=== PATIENT | female | born 1985 | race American Indian/Alaskan Native ===

== ENCOUNTER 2017-09-21 07:53 | Emergency (ER) | payer BC ==
[2017-09-21] MEDS ORDERED: DUONEB *Not for PRN Use IH ONE ×3 (11:14→11:20)
--- NOTE | 2017-09-21 11:15 | Emergency Department Report ---
ED Asthma HPI - General Chief Complaint: Adult Asthma Stated Complaint: ASTHMA Time Seen by Provider: 09/21/17 10:27 Source: patient, family Mode of arrival: Ambulatory Limitations: No Limitations - History of Present Illness Initial Comments: Patient here reports that she is asthma flare up and out of her Symbicort and albuterol. She is also states that she cannot see her primary care physician is Dr. Shmuel Goldstein until next week. She reports wheezing and coughing. Denies any chest pain or discomfort. Denies any fever or chills. Last flareup was in 2014. Last ER visit was in 2014 and she has never been intubated. She coughs and wheezes whether asthma exacerbation. She says it started off with her having runny nose and nasal congestion due to pollen and now she has a full- blown asthma attack per patient. MD Complaint: "asthma attack", shortness of breath, wheezing Onset/Timin -: days(s) Asthma History: history of prior ED visit Context: recent URI, ran out of meds, allergen exposure Associated Symptoms: dry cough. denies: productive cough, fever, chest pain, hemoptysis, leg edema, syncope Treatments Prior to Arrival: inhaled steroid - Related Data Current Asthma Therapy: inhaled bronchodilator, inhaled steroid Previous Rx's Medication Instructions Recorded Last Taken Type Cephalexin [Keflex] 500 mg PO Q6H #28 capsule 05/05/14 Unknown Rx Amoxicillin 1,000 mg PO Q8H #60 tablet 07/18/14 Unknown Rx Ibuprofen [Motrin 800 MG tab] 800 mg PO Q8H PRN #30 tablet 07/18/14 Unknown Rx ALBUTEROL Inhaler [ProAir HFA 2 puff INHALATION Q6H PRN #1 inha 09/21/17 Unknown Rx Inhaler] Budesoni/Formotero 160-4.5(Nf) 2 puff IH BID #1 inha 09/21/17 Unknown Rx [Symbicort 160-4.5 (Nf)] Fluticasone [Flonase] 1 spray NS QDAY #1 bottle 09/21/17 Unknown Rx predniSONE [Deltasone] 20 mg PO QDAY 3 Days #3 tab 09/21/17 Unknown Rx Allergies Allergy/AdvReac Type Severity Reaction Status Date / Time No Known Allergies Allergy Verified 09/21/17 07:56 ED Review of Systems ROS: Stated complaint: ASTHMA Other details as noted in HPI Comment: All other systems reviewed and negative Constitutional: no symptoms reported Eyes: denies: eye discharge ENT: congestion. denies: ear pain, throat pain, hearing loss Respiratory: cough, wheezing. denies: orthopnea, shortness of breath, SOB with exertion, SOB at rest, stridor Cardiovascular: denies: chest pain, palpitations, dyspnea on exertion, edema, syncope, paroxysmal nocturnal dyspnea Gastrointestinal: denies: abdominal pain, nausea, vomiting, diarrhea Genitourinary: denies: dysuria, hematuria Musculoskeletal: denies: back pain, joint swelling, arthralgia, myalgia Skin: denies: rash Neurological: denies: headache, vertigo ED Past Medical Hx - Past Medical History Previous Medical History?: Yes Hx Hypertension: No Hx Congestive Heart Failure: No Hx Diabetes: No Hx Deep Vein Thrombosis: No Hx Renal Disease: No Hx Sickle Cell Disease: No Hx Seizures: No Hx Asthma: Yes Hx COPD: No Hx HIV: No - Surgical History Past Surgical History?: No - Family History Family history: hypertension - Social History Smoking Status: Current Every Day Smoker Substance Use Type: None - Medications Home Medications: Home Medications Medication Instructions Recorded Confirmed Last Taken Type Cephalexin [Keflex] 500 mg PO Q6H #28 capsule 05/05/14 Unknown Rx Amoxicillin 1,000 mg PO Q8H #60 tablet 07/18/14 Unknown Rx Ibuprofen [Motrin 800 MG tab] 800 mg PO Q8H PRN #30 tablet 07/18/14 Unknown Rx ALBUTEROL Inhaler [ProAir HFA 2 puff INHALATION Q6H PRN #1 inha 09/21/17 Unknown Rx Inhaler] Budesoni/Formotero 160-4.5(Nf) 2 puff IH BID #1 inha 09/21/17 Unknown Rx [Symbicort 160-4.5 (Nf)] Fluticasone [Flonase] 1 spray NS QDAY #1 bottle 09/21/17 Unknown Rx predniSONE [Deltasone] 20 mg PO QDAY 3 Days #3 tab 09/21/17 Unknown Rx ED Physical Exam - General Limitations: No Limitations General appearance: alert, in no apparent distress - Head Head exam: Present: atraumatic, normocephalic, normal inspection - Eye Eye exam: Present: normal appearance, PERRL, EOMI Pupils: Present: normal accommodation - ENT ENT exam: Present: normal orophraynx, mucous membranes moist, normal external ear exam, other (bilateral nasal mucosa congested with clear drainage). Absent : normal exam, TM's normal bilaterally (bilateral TM congested without erythema) - Neck Neck exam: Present: normal inspection, full ROM. Absent: tenderness, lymphadenopathy - Respiratory Respiratory exam: Present: wheezes, other (dry cough). Absent: normal lung sounds bilaterally, respiratory distress, rales, rhonchi, stridor, chest wall tenderness, accessory muscle use, decreased breath sounds, prolonged expiratory - Cardiovascular Cardiovascular Exam: Present: regular rate, normal rhythm, normal heart sounds - Extremities Exam Extremities exam: Present: normal inspection, full ROM, normal capillary refill , other (no clubbing, cyanosis or edema. +2 pulses to all extremities). Absent : tenderness, pedal edema, joint swelling - Neurological Exam Neurological exam: Present: alert, oriented X3, normal gait - Psychiatric Psychiatric exam: Present: normal affect, normal mood - Skin Skin exam: Present: warm, dry, intact, normal color. Absent: rash ED Course Vital Signs 09/21/17 07:57 Temperature 98.4 F Pulse Rate 74 Respiratory 20 Rate Blood Pressure 154/98 O2 Sat by Pulse 100 Oximetry - Reevaluation(s) Reevaluation #1: 09/21/17 12:28 Patient received DuoNeb and Atrovent one amp treatment in emergency room for asthma exacerbation. She says she felt better after. She also received Deltasone 60 mg by mouth. ED Medical Decision Making - Medical Decision Making ED course: Patient status post asthma flareup and was treated with DuoNeb 1 nebulizer treatment and prednisone 60 mg by mouth in emergency room and she voiced relief of her wheezing. She also has upper respiratory with cough and congestion. I discussed the diagnosis and treatment plan. Patient has request for refill on Symbicort and albuterol. I discussed with her that she needs to keep her appointment for next week to see Dr. Shmuel Goldstein follow-up asthma. Patient voiced understanding and discharged home in stable condition with prescription for albuterol nebulizer, inhaler, prednisone and Symbicort. Critical care attestation.: If time is entered above; I have spent that time in minutes in the direct care of this critically ill patient, excluding procedure time. ED Disposition Clinical Impression: URI with cough and congestion Acute asthma exacerbation Qualifiers: Asthma severity: mild Asthma persistence: intermittent Qualified Code(s): J45.21 - Mild intermittent asthma with (acute) exacerbation Disposition: TO HOME OR SELFCARE Is pt being admited?: No Does the pt Need Aspirin: No Condition: Stable Instructions: Asthma (ED), Upper Respiratory Infection (ED) Additional Instructions: Please take Zyrtec and Flonase for nasal congestion and runny nose Take albuterol nebulizer every 6 hours 48 hours and then as needed Use albuterol inhaler as instructed but if you find using it more than twice a week he'll need to follow-up with your primary care for reevaluation. Take prednisone as instructed Continue to use your Symbicort as instructed by your primary care Keep keep the appointment with primary care physician as scheduled return to Emergency room if his symptoms return and/or worsens Prescriptions: ALBUTEROL Inhaler [ProAir HFA Inhaler] 2 puff INHALATION Q6H PRN #1 inha PRN Reason: wheezing and cough Budesoni/Formotero 160-4.5(Nf) [Symbicort 160-4.5 (Nf)] 2 puff IH BID #1 inha Fluticasone [Flonase] 1 spray NS QDAY #1 bottle predniSONE [Deltasone] 20 mg PO QDAY 3 Days #3 tab Referrals: SHMUEL GOLDSTEIN MD [Primary Care Provider] - 2-3 Days Forms: Accompanied Note, Work/School Release Form(ED)
[2017-09-21] MEDS ORDERED: DELTASONE PO ONE (11:21)
[2017-09-21 12:54] VITALS: BP 126/76
== END 2017-09-21 12:53 | disposition home or self-care (01) ==
LOC: ED 07:53
DX: J45.901 Unspecified asthma with (acute) exacerbation (principal); F17.200 Nicotine dependence, unspecified, uncomplicated
CPT/HCPCS: 94640; 99282; J7512

== ENCOUNTER 2020-07-16 16:55 | Outpatient (CLI) | payer SELFPAY ==
[2020-07-16 18:13] LABS: Hepatitis C Virus Antibody Non-Reactive (NonReactive)
== END 2020-07-16 16:56 | disposition home or self-care (01) ==
LOC: LAB 16:55
PROVIDERS: ATTEND Obstetrics & Gynecology
DX: O09.521 Supervision of elderly multigravida, first trimester (principal); O09.891 Supervision of other high risk pregnancies, first trimester; Z3A.10 10 weeks gestation of pregnancy
CPT/HCPCS: 36415; 85660; 86592; 86689; 86706; 86762; 86803; 86900; 86901

== ENCOUNTER 2021-02-05 18:20 | Emergency (ER) | payer MEDICAID ==
--- NOTE | 2021-02-05 19:26 | Event Note ---
ED Screening Note Date of service: 02/05/21 Time: 19:23 ED Screening Note: 35-year-old morbid obese -[place] female presents to the emergency room complaining of headache and swelling of her feet and ankles. Patient reports that she delivered a baby on 01/31/2021 with only complications of gestational diabetes. Patient was able to deliver baby full-term vaginal delivery. She states that she had made contact with her doctor at [facility] and they informed her to come to the emergency room to have a blood pressure check and blood work. Patient states she has had's little dizziness. She does report having a large blood clots from her vaginal area today. Patient is 4 para 2. This initial assessment/diagnostic orders/clinical plan/treatment(s) is/are subject to change based on patients health status, clinical progression and re- assessment by fellow clinical providers in the ED. Further treatment and workup at subsequent clinical providers discretion. Patient/guardian urged not to elope from the ED as their condition may be serious if not clinically assessed and ma naged. Initial orders include:
--- NOTE | 2021-02-05 19:49 | Emergency Department Report ---
HPI - General Time Seen by Provider: 02/05/21 19:45 - HPI HPI: This is a 35-year-old -[place] female presents to the emergency department with complaint of a mild generalized headache, and bilateral lower extremity swelling, that has started about 5 to 6 days after giving . The patient gave at 39 weeks gestation via vaginal delivery at [facility] on 01/30/2021. With this and delivery the patient is G4, P2. The patient's ENVIRONMENTAL SERVICES PROJECT MANAGER is Dr. Melgar with [employer]. She called her ENVIRONMENTAL SERVICES PROJECT MANAGER service last night but did not receive a return phone call. She denies any fever, vision change, slurred speech, numbness or paresthesias, chest pain, shortness of breath. The patient has history of gestational diabetes and asthma. She has not taken anything for symptoms prior to presentation today. ED Past Medical Hx - Past Medical History Hx Hypertension: No Hx Congestive Heart Failure: No Hx Diabetes: No Hx Deep Vein Thrombosis: No Hx Renal Disease: No Hx Sickle Cell Disease: No Hx Seizures: No Hx Asthma: Yes (ALBUTEROL, SYMBICORT) Hx COPD: No Hx HIV: No - Social History Smoking Status: Never Smoker - Medications Home Medications: Home Medications Medication Instructions Recorded Confirmed Last Taken Type Albuterol Mdi (or & Nicu Only) 1 puff IH DAILY PRN 01/31/21 01/31/21 Unknown History [ProAir HFA Inhaler] Budesonide/Formoterol Fumarate 10.2 gm IH DAILY PRN 01/31/21 01/31/21 Unknown History [Symbicort 160-4.5 Mcg Inhaler] Ferrous Sulfate [Iron 325 MG] 325 mg PO DAILY 01/31/21 01/31/21 Unknown History Vit-Fe Fumar-FA [ 1 tab PO QDAY 01/31/21 01/31/21 Unknown History Vitamin] metFORMIN [Glucophage] 500 mg PO QDAY 01/31/21 01/31/21 Unknown History valACYclovir [Valtrex] 500 mg PO BID 01/31/21 01/31/21 Unknown History Docusate Sodium [Colace CAP] 100 mg PO BID #60 capsule 02/01/21 Unknown Rx Ferrous Sulfate [Feosol 325 MG tab] 325 mg PO TID #90 tablet 02/01/21 Unknown Rx Nitrofurantoin Meigs/M-Cryst 100 mg PO Q12HR #14 capsule 02/05/21 Unknown Rx [Macrobid CAP] ED Review of Systems ROS: Stated complaint: complication after delivery Other details as noted in HPI Comment: All other systems reviewed and negative Constitutional: denies: chills, fever Eyes: denies: eye pain, vision change ENT: denies: ear pain, throat pain Respiratory: denies: cough, shortness of breath Cardiovascular: edema. denies: chest pain Gastrointestinal: denies: abdominal pain, vomiting Genitourinary: denies: dysuria, discharge Musculoskeletal: denies: back pain, arthralgia Skin: denies: rash, lesions Neurological: headache. denies: weakness, numbness, paresthesias Physical Exam - Physical Exam Physical Exam: GENERAL: The patient is well-developed well-nourished. HENT: Normocephalic. Atraumatic. Patient has moist mucous membranes. EYES: Extraocular motions are intact. NECK: Supple. Trachea is midline. CHEST/LUNGS: Clear to auscultation. There is no respiratory distress noted. HEART/CARDIOVASCULAR: Regular. There is no tachycardia. There is no murmur. ABDOMEN: Abdomen is soft, nontender. Patient has normal bowel sounds. SKIN: Skin is warm and dry. 1+ pitting edema to the bilateral lower extremities from the knees distally. NEURO: The patient is awake, alert, and oriented. The patient is cooperative. The patient has no focal neurologic deficits. Normal speech. Cranial nerves II through XII grossly intact. MUSCULOSKELETAL: There is no tenderness or deformity. There is no limitation range of motion. ED Course - Consultations Consultation #1: 02/05/21 22:[address] Worthy of [facility]. She agrees that the patient does not appear consistent with a preeclampsia and therefore can follow-up outpatient on Wednesday with her previously scheduled appointment. ED Medical Decision Making - Lab Data Result diagrams: 02/05/21 19:51 02/05/21 19:51 Lab Results 02/05/21 02/05/21 02/05/21 Range/Units 19:51 19:51 20:15 WBC 6.7 (4.5-11.0) K/mm3 RBC 3.73 (3.65-5.03) M/mm3 Hgb 9.8 L (10.1-14.3) gm/dl Hct 30.1 L (30.3-42.9) % MCV 81 (79-97) fl MCH 26 L (28-32) pg MCHC 33 (30-34) % RDW 15.6 H (13.2-15.2) % Plt Count 358 (140-440) K/mm3 Lymph % (Auto) 30.4 (13.4-35.0) % Meigs % (Auto) 11.4 H (0.0-7.3) % Eos % (Auto) 3.1 (0.0-4.3) % Baso % (Auto) 0.9 (0.0-1.8) % Lymph # (Auto) 2.0 (1.2-5.4) K/mm3 Meigs # (Auto) 0.8 (0.0-0.8) K/mm3 Eos # (Auto) 0.2 (0.0-0.4) K/mm3 Baso # (Auto) 0.1 (0.0-0.1) K/mm3 Seg Neutrophils % 54.2 (40.0-70.0) % Seg Neutrophils # 3.6 (1.8-7.7) K/mm3 Sodium 142 (137-145) mmol/L Potassium 4.0 (3.6-5.0) mmol/L Chloride 108.4 H (98-107) mmol/L Carbon Dioxide 26 (22-30) mmol/L Anion Gap 12 mmol/L BUN 12 (7-17) mg/dL Creatinine 0.9 (0.6-1.2) mg/dL Estimated GFR > 60 ml/min BUN/Creatinine Ratio 13 % Glucose 112 H (65-100) mg/dL Calcium 8.8 (8.4-10.2) mg/dL Total Bilirubin 0.20 (0.1-1.2) mg/dL AST 32 (5-40) units/L ALT 46 (7-56) units/L Alkaline Phosphatase 129 (35-129) units/L Total Protein 6.4 (6.3-8.2) g/dL Albumin 3.6 L (3.9-5) g/dL Albumin/Globulin Ratio 1.3 % Urine Color Yellow (Yellow) Urine Turbidity Hazy (Clear) Urine pH 5.0 (5.0-7.0) Ur Specific [place] 1.028 (1.003-1.030) Urine Protein 30 mg/dl (Negative) mg/dL Urine Glucose (UA) Neg (Negative) mg/dL Urine Ketones Neg (Negative) mg/dL Urine Blood Lg (Negative) Urine Nitrite Neg (Negative) Urine Bilirubin Neg (Negative) Urine Urobilinogen 4.0 (<2.0) mg/dL Ur Leukocyte Esterase Sm (Negative) Urine WBC (Auto) 15.0 H (0.0-6.0) /HPF Urine RBC (Auto) 8.0 (0.0-6.0) /HPF U Epithel Cells (Auto) 6.0 (0-13.0) /HPF Urine Mucus 1+ /HPF - Medical Decision Making This patient presents to the emergency department about 5 to 6 days after giving at this hospital and comes in for an evaluation of possible preeclampsia. She complains of a mild generalized headache, but does not have any focal, motor or sensory deficits and her cranial nerves are intact. The patient also complains of bilateral lower extremity swelling. She denies any chest pain, shortness of breath, fever, cough. On examination she does have mild 1+ pitting edema to the distal bilateral lower extremities without any erythema, rash, lesions. Heart and lung sounds are normal to auscultation and she does not appear in any respiratory or acute distress. The patient's labs are mostly unremarkable including CBC, metabolic panel, except for some mild anemia with hemoglobin of 9.6. This is not at a threshold that requires a blood transfusion and the patient does not appear symptomatic from this mild anemia. Urinalysis shows a very mild urinary tract infection. The patient will be treated with Macrobid. Vital signs reassuring throughout her ED course including being afebrile. The patient has not had any hypertension while in the emergency department. I discussed the patient's presentation, lab results and vital signs with Dr Worthy who agrees that this does not appear consistent with preeclampsia and the patient appears safe for discharge home at this time. She will follow-up outpatient on Wednesday with Dr. Melgar. Critical Care Time: No Critical care attestation.: If time is entered above; I have spent that time in minutes in the direct care o f this critically ill patient, excluding procedure time. ED Disposition Clinical Impression: Bilateral lower extremity edema UTI (urinary tract infection) Qualifiers: Urinary tract infection type: acute cystitis Hematuria presence: without hematuria Qualified Code(s): N30.00 - Acute cystitis without hematuria Headache Qualifiers: Headache type: unspecified Headache chronicity pattern: unspecified pattern Intractability: not intractable Qualified Code(s): R51.9 - Headache, unspecified Disposition: HOME / SELF CARE / HOMELESS Is pt being admited?: No Condition: Stable Instructions: General Headache Without Cause, Urinary Tract Infection, Adult, Peripheral Edema Additional Instructions: Please follow-up with your ENVIRONMENTAL SERVICES PROJECT MANAGER on Wednesday as previously scheduled. Return to the emergency department with any worsening of your symptoms, new or concerning symptoms not addressed during this current emergency department visit, or with any acute distress. Prescriptions: Nitrofurantoin Meigs/M-Cryst [Macrobid CAP] 100 mg PO Q12HR #14 capsule Referrals: AZAEL MELGAR MD [Staff Physician] - 02/07/21 Time of Disposition: 22:22
[2021-02-05 19:56] VITALS: BP 123/40
[2021-02-05 20:00] LABS: Basophils # (Auto) 0.1 K/mm3 (0.0-0.1); Basophils % (Auto) 0.9 % (0.0-1.8); Eosinophils # (Auto) 0.2 K/mm3 (0.0-0.4); Eosinophils % (Auto) 3.1 % (0.0-4.3); Hematocrit 30.1 % (30.3-42.9); Hemoglobin 9.8 gm/dl (10.1-14.3); Lymphocytes % (Auto) 30.4 % (13.4-35.0); Mean Corpuscular HGB Conc 33 % (30-34); Mean Corpuscular Volume 81 fl (79-97); Monocytes # (Auto) 0.8 K/mm3 (0.0-0.8); Monocytes % (Auto) 11.4 % (0.0-7.3); Platelet Count 358 K/mm3 (140-440); Red Blood Count 3.73 M/mm3 (3.65-5.03); Red Cell Distribution Width 15.6 % (13.2-15.2)
[2021-02-05 20:20] LABS: Alanine Aminotransferase 46 units/L (7-56); Albumin 3.6 g/dL (3.9-5); BUN/Creatinine Ratio 13; Blood Urea Nitrogen 12 mg/dL (7-17); Calcium 8.8 mg/dL (8.4-10.2); Hemolysis Index 4
[2021-02-05 20:32] LABS: Bilirubin,Urine NEG (Negative); Blood,Urine LG (Negative); Color,Urine Yellow (Yellow); Mucus,Urine 1+ /HPF
[2021-02-05] MEDS ORDERED: ACETAMINOPHEN 325 MG TAB PO ONE (21:22)
[2021-02-05] MEDS ORDERED: NITROFURANTOIN MONOHYD/M-CRYST 100 MG CAP PO ONE (21:22)
== END 2021-02-05 22:30 | disposition home or self-care (01) ==
LOC: ED 18:20
DX: O86.20 Urinary tract infection following delivery, unspecified (principal); O90.89 Other complications of the puerperium, not elsewhere classified; R60.0 Localized edema; R51.9 Headache, unspecified; J45.909 Unspecified asthma, uncomplicated
CPT/HCPCS: 36415; 80053; 81001; 85025; 87086; 99283